=== PATIENT | female | born 1995 | race African-American/Black ===

== ENCOUNTER 2017-03-02 12:17 | Emergency (ER) | payer OTHER ==
[~2017-03-02] VITALS: Ht 165.1 cm; Wt 92.1 kg
[2017-03-02] MEDS ORDERED: IRON325 PO (12:30)
[2017-03-02] MEDS ORDERED: TRINATE TABLET1 TAB PO (12:30)
[2017-03-02 13:28] VITALS: BP 109/61
== END 2017-03-02 13:30 | disposition short-term general hospital (02) ==
LOC: ER 12:17
DX: O26.893 Other specified pregnancy related conditions, third trimester (principal); R10.9 Unspecified abdominal pain; Z3A.32 32 weeks gestation of pregnancy